=== PATIENT | female | born 1985 | race Caucasian/White ===

== ENCOUNTER 2023-05-07 07:51 | Outpatient (CLI) | payer OTHER, SELFPAY | END 2023-05-07 07:52 | disposition home or self-care (01) | LOC: NFLDREF 11:58 | PROVIDERS: PCP Obstetrics & Gynecology; Referring Provider Obstetrics & Gynecology; Visit Provider Obstetrics & Gynecology | DX: Z01.419 Encounter for gynecological examination (general) (routine) without abnormal findings (principal); Z13.6 Encounter for screening for cardiovascular disorders; Z13.29 Encounter for screening for other suspected endocrine disorder | CPT/HCPCS: 80061; 84443 ==

== ENCOUNTER 2023-07-31 15:27 | Outpatient (CLI) | payer OTHER, SELFPAY ==
--- NOTE | 2023-07-31 15:40 | CRLHL7_ITS ---
For Patients: As a result of the Cures Act, medical imaging exams and procedure reports are released immediately into your electronic medical record. You may view this report before your referring provider. If you have questions, please contact your health care provider. BILATERAL SCREENING MAMMOGRAM WITH COMPUTER-AIDED DETECTION AND TOMOSYNTHESIS TECHNIQUE: CC and MLO views were obtained. These mammographic images have been obtained using full-field digital technique. These mammographic images were interpreted with the benefit of computer-aided detection. Breast tomosynthesis was used in this interpretation. COMPARISON FILM: None. This is a baseline study. FINDINGS: The breasts are heterogeneously dense, which may obscure small masses. IMPRESSION: There is no radiographic evidence for malignancy. ASSESSMENT: BI-RADS Category 1: Negative RECOMMENDATION: Annual mammograms beginning at age 40. A lay language report of this examination will be provided to the patient. GUILLAUME VILLAVICENCIO M.D. Diagnostic/Nuclear Medicine Radiologist [email or web address] Transcribed: 1:[address]/Dictated by: Guillaume Villavicencio MD @ 08/01/2023 9:50:00 AM (Electronically Signed)
== END 2023-07-31 15:28 | disposition home or self-care (01) ==
LOC: MAMMO 15:28
PROVIDERS: Visit Provider Obstetrics & Gynecology
DX: Z12.31 Encounter for screening mammogram for malignant neoplasm of breast (principal); R92.2 Inconclusive mammogram; Z80.3 Family history of malignant neoplasm of breast
CPT/HCPCS: 77063; 77067

== ENCOUNTER 2024-10-06 12:09 | Outpatient (CLI) | payer BC, SELFPAY ==
--- NOTE | 2024-10-06 12:15 | CRLHL7_ITS ---
For Patients: As a result of the Cures Act, medical imaging exams and procedure reports are released immediately into your electronic medical record. You may view this report before your referring provider. If you have questions, please contact your health care provider. INDICATION: First trimester scan, establish dates. COMPARISON: None. TECHNIQUE: Real-time carney-scale imaging of the pelvis was performed. FINDINGS: Sonographic imaging demonstrates a single living intrauterine gestation. The embryo demonstrates a regular cardiac rate measuring 173 beats per minute. The embryo`s crown-rump length measurement of 2.0 cm corresponds to a gestational age of 8 weeks 4 days with a sonographic due date of 05/14/2025. There is a normal-appearing yolk sac. There are no gross abnormalities noted within the embryo at this early state of development. The gestational sac has a normal appearance. There is no evidence of a perigestational hemorrhage. The amount of fluid within the sac appears appropriate for gestational age. The cervix is closed. The myometrium appears normal. The ovaries are of normal size. There are no suspicious fluid collections noted in the cul-de-sac. IMPRESSION: Normal first trimester OB ultrasound exam. Gestational age calculated at 8 weeks 4 days with a sonographic due date of 05/14/2025. Dictated by Jose J Heller MD @ 10/06/2024 12:51:46 PM (Electronically Signed)
== END 2024-10-06 12:10 | disposition home or self-care (01) ==
LOC: US 12:09
PROVIDERS: Visit Provider Advanced Practice Midwife
DX: Z34.91 Encounter for supervision of normal pregnancy, unspecified, first trimester (principal); Z3A.08 8 weeks gestation of pregnancy
CPT/HCPCS: 76817

== ENCOUNTER 2024-10-21 16:10 | Outpatient (CLI) | payer BC, SELFPAY | END 2024-10-21 16:11 | disposition home or self-care (01) | LOC: NFLDREF 10-22 02:19 | PROVIDERS: Visit Provider Advanced Practice Midwife | DX: Z34.81 Encounter for supervision of other normal pregnancy, first trimester (principal); Z67.10 Type A blood, Rh positive | CPT/HCPCS: 83020; 83021; 85660; 86592; 86703; 86704; 86706; 86762; 86787; 86803; 86850; 86900; 86901; 87086; 87340 ==

== ENCOUNTER 2024-12-31 12:44 | Outpatient (CLI) | payer BC, SELFPAY | END 2024-12-31 12:45 | disposition home or self-care (01) | LOC: US 12:44 | PROVIDERS: Visit Provider Obstetrics & Gynecology | DX: O09.522 Supervision of elderly multigravida, second trimester (principal); Z3A.20 20 weeks gestation of pregnancy | CPT/HCPCS: 76811 ==

== ENCOUNTER 2025-02-24 13:12 | Outpatient (CLI) | payer BC, SELFPAY | END 2025-02-24 13:13 | disposition home or self-care (01) | LOC: NFLDREF 03-04 00:09 | PROVIDERS: Visit Provider Obstetrics & Gynecology | DX: Z34.93 Encounter for supervision of normal pregnancy, unspecified, third trimester (principal); Z3A.28 28 weeks gestation of pregnancy | CPT/HCPCS: 86592 ==

== ENCOUNTER 2025-02-25 07:49 | Outpatient (CLI) | payer BC, SELFPAY | END 2025-02-25 07:50 | disposition home or self-care (01) | LOC: NFLDREF 03-04 02:37 | PROVIDERS: Visit Provider Obstetrics & Gynecology | DX: Z34.83 Encounter for supervision of other normal pregnancy, third trimester (principal) | CPT/HCPCS: 82951; 82952 ==

== ENCOUNTER 2025-03-27 09:13 | Outpatient (CLI) | payer BC, SELFPAY ==
--- NOTE | 2025-03-27 09:15 | CRLHL7_ITS ---
For Patients: As a result of the Century Cures Act, medical imaging exams and procedure reports are released immediately into your electronic medical record. You may view this report before your referring provider. If you have questions, please contact your health care provider. LMP: 08/10/2024. LOUISA by LMP: 05/17/2025. GA: 32w, 5d. Single. INDICATION: Measuring large for dates. CERVIX: Not visualized. POSITIONING: Transverse right. AMNIOTIC FLUID: 6.2 cm SDP. PLACENTA: Technique: Transabdominal. PLACENTA POSITION: Posterior. DOPPLER: heart rate: 139 bpm. Biometry: BPD: 8.8 cm. 35w, 2d, 96.8 percent. HC: 32.6 cm. 37w, 0d, >97 percent. AC: 32.9 cm. 36w, 5d, >97 percent. FL: 6.3 cm. 32w, 4d, 32 percent. FL/AC ratio: 19.12 percent. HC/AC ratio: 0.99. EFW: 2709 g. Weight: 6 lbs, 0 oz. age by this US: 35w, 3d. LOUISA by this US: 04/28/2025. Percentile by LOUISA: >97 percent. IMPRESSION: 1. Sonographic gestational age 35 weeks 3 days and sonographic due date 04/28/2025. Sonographic age is 19 days ahead of the clinical age. 2. Estimated weight greater than 97th percentile. Abdominal circumference and head circumference greater than 97th percentile. Jose J Heller M.D. Diagnostic Radiologist [email or web address] bM/Dictated by: Jose J Heller MD @ 03/27/2025 11:25:00 AM (Electronically Signed)
== END 2025-03-27 09:14 | disposition home or self-care (01) ==
LOC: US 09:13
PROVIDERS: Visit Provider Obstetrics & Gynecology
DX: O36.63X0 Maternal care for excessive fetal growth, third trimester, not applicable or unspecified (principal); Z3A.32 32 weeks gestation of pregnancy
CPT/HCPCS: 76816

== ENCOUNTER 2025-04-16 09:14 | Outpatient (CLI) | payer BC, SELFPAY ==
[2025-04-16] VITALS (8 sets, daily range): BP systolic 97–103; BP diastolic 59–65; PULSE 76–105; RESP 16; TEMP 36.8; O2SAT 96–97
[2025-04-16 10:17] LABS: Amnisure Rom* Negative
--- NOTE | 2025-04-16 10:23 | CRLHL7_ITS ---
For Patients: As a result of the Century Cures Act, medical imaging exams and procedure reports are released immediately into your electronic medical record. You may view this report before your referring provider. If you have questions, please contact your health care provider. INDICATION: Leaking fluid. (Sic) COMPARISON: 03/27/2025 TECHNIQUE: Grayscale pelvic ultrasound via a transabdominal approach. FINDINGS: number: 1 Position: Cephalic. Placental Position: Posterior. Amniotic fluid: DVP 8.1cm. CHINA is 27.8 cm. heart rate: 146bpm. Uterus: No significant uterine findings. Right ovary: Unseen. Left ovary: Unseen. IMPRESSION: 1. Measurements of the deepest vertical pocket of amniotic fluid and CHINA are consistent with polyhydramnios. This represents a change from the 03/27/2025 exam where these deepest vertical pocket of amniotic fluid measures 6.2 cm, within normal limits. 2. Cantu living fetus. Dictated by Pb Maldonado MD @ 04/16/2025 11:40:38 AM (Electronically Signed)
[2025-04-16 11:06] LABS: Trichomonas No Trichomonas Seen (None Seen)
[2025-04-16 13:04] LABS: Amnisure Rom* Negative
--- NOTE | 2025-04-16 13:05 | W.PM.OBO ---
OB Outpatient HPI History of Present Illness Date Seen: 04/16/25 History of Present Illness: 40 year old at 35 4/7 weeks gestation by LMP, LOUISA 05/17/25, presents with concerns for watery like vaginal discharge this morning. Patient states that at around 1:30 am today she woke up to urinate, she was able to urinate as usual was walking back to bed and felt additional warm discharge. She returned to the bathroom and a stream of fluid was noted that she was unable to hold. She would describe this fluid as more clear in color. She decided to put a pantie liner and since it did not happen again decided to wait until morning and call in to check if she should be evaluated or not. Upon admission to labor and delivery patient denies continued discharge, no concerns about frequent contractions, no dysuria, no urgency or frequency. She has been a bit more constipated in these last couple of weeks. No diarrhea. She does state that this past weekend she was feeling off, she was trying to stay off the heat but was inside her house doing a lot of organizing and cleaning. Sunday afternoon had an episode of headache and seeing dark spots in her vision that resolved after rest and hydration. She also had a friend take her blood pressure that day and it was normal in the 120s, over 70s. No new lower extremity swelling, no pain in her abdomen etc... Baby moving naturally: Yes Bleeding: No Contractions: Yes Leaking fluid: Yes (Uncertain) Discharge: Yes (Uncertain) Heartburn: No Back pain: No Meds Home Medications and Allergies Home Medications ?Medication ?Instructions ?Recorded ?Confirmed ?Type omega-3 fatty acids 1,000 mg 1,000 mg PO QDAY 10/06/24 04/16/25 History capsule vits 75-iron 28 mg-folic pkg PO 10/06/24 04/10/25 History acid 800 mcg-omega3 440 mg oral pack (One Daily ) magnesium 200 mg tablet 400 mg PO QDAY 02/24/25 04/16/25 History Blood Glucose Meter #1 ea 03/27/25 04/10/25 Rx Test Strips #100 ea 03/27/25 04/10/25 Rx lancets #100 ea 03/27/25 04/10/25 Rx polyethylene glycol 3350 17 4 g PO QDAY PRN 04/10/25 04/16/25 History gram/dose oral powder (Miralax) Allergies Allergy/AdvReac Type Severity Reaction Status Date / Time No Known Drug Allergies Allergy Verified 04/10/25 08:28 [facility] Medical History (Updated 04/16/25 @ 13:19 by Racquel Nevarez MD) care ?Z34.90 - Encounter for supervision of normal , unspecified, unspecified trimester (ICD-10) care and examination ?Z39.2 - Encounter for routine follow-up (ICD-10) History of vaginal delivery History of macrosomia in infant in prior , currently ?O09.299 - Supervision of with other poor reproductive or obstetric history, unspecified trimester (ICD-10) Delivery normal ?O80 - Encounter for full-term uncomplicated delivery (ICD-10) Surgical History (Updated 04/27/23 @ 16:53 by Manoj Wilson) Status post surgery ?Z98.890 - Other specified postprocedural states (ICD-10) Family History (Updated 10/07/24 @ 12:40 by Anabell Ling CNM) Brother Factor V Leiden mutation Social History (Updated 10/07/24 @ 12:19 by Anabell Ling CNM) Narrative: SOCIAL Education: Masters Work: Teachers, Kindergarten Partner: Juan, Agriculture Finance Lives with: and 3 children Pets: 1 dog Abuse: Denies past/present Special Diet: Denies Ok with a blood transfusion: yes Culture or zoroastrianism beliefs: denies RISK FACTORS Exercise Times/wk: Pilates and walking 1-3 Hx of Depression and/or Anxiety/other mood disorder: no hx Seat Belt Use: Routinely Smoking: Denies past/present Alcohol/day: Denies while ; socially Caffeine: Coffee Drug Use: Denies past/present Chicken Pox: Yes as a child MRSA: Denies What is your current living situation?: I presently have a place to live Problems where you live: no known problems In the past 12 months, utilities in danger of being shut off: no In past 12 months, lack of transportation kept you from medical appts, meetings, work, or getting things needed for daily living: no In the past 12 mos, have been you worried that your food would run out before you had money to buy more?: never true In the past 12 mos, the food you bought just didn't last and you didn't have money to buy more?: never true Smoking Status: Never smoker How often does anyone, including family, friends and others, physically hurt you: never How often does anyone, including family, friends and others, insult or talk down to you: never How often does anyone, including family, friends and others, threaten you with harm: never How often does anyone, including family, friends and others, scream or curse at you: never History History 4 Elective abortions Para 3 Spontaneous abortions Hx # Term Pregnancies 3 Ectopic pregnancies Hx # Pregnancies Multiple births Number of Living Children 3 Past Pregnancies Del. Date GA/Weeks Outcome Route wt Inf Gender Labor Lgth Anesthesia Location Provider Compli 04/04/16 41 live - full term 4.479 kg Male epidural Enedelia Chao MD 08/18/18 40 live - full term 3.997 kg Female epidural Racquel Ji MD 06/03/21 39 live - full term 4.139 kg Female epidural Racquel Ji MD Delivery Date: 04/04/16 Last Updated by: Megan Muñoz ~ CAR SWEEPER, CAR SWEEPER induction of labor Delivery Date: 08/18/18 Last Updated by: Megan Muñoz ~ CAR SWEEPER, CAR SWEEPER induction of labor OB - H&P: Exam Physical Exam Vital signs: Temp Pulse Resp BP Pulse Ox 98.3 F 77 16 97/59 L 96 04/16/25 09:36 04/16/25 12:27 04/16/25 09:36 04/16/25 12:27 04/16/25 09:47 Narrative: NST: 135bpm/positive accelerations/negative decelerations/moderate variability/ irregular uterine contractions. Sterile speculum exam: no pooling, no Valsalva. Cervix: 1/80%/-2/vertex. US: Vertex! SDP: 8.1cm. CHINA: 27.8cm. Consistent with mild polyhydramnios. Labs Labs Laboratory Tests 04/16/25 04/16/25 04/16/25 Range/Units Unknown 12:43 10:22 Membrane Rupture Negative Negative Vaginal Trichomonas No Trichomonas Seen (None Seen) Vaginal Yeast No Yeast Seen (None Seen) Vaginal Clue Cells No Clue Cells Seen (None Seen) Group B Strep DNA Pending Assessment and Plan Assessment and plan (1) Vaginal discharge during : Status: Acute Plan 1. Vaginal discharge: negative AmniSure upon admission, wet prep negative. I also had her walk put a pad on and no new episodes of abnormal discharge. I repeated AmniSure after speculum exam and this was again negative. Ultrasound completed and amniotic fluid elevated which is a new finding, but not consistent with PPROM. So at this moment I feel confident enough to r/o PPROM. Encouraged to continue to monitor and be re evaluated with any new concerning episode. 2. Monitoring showing irregular contractions, patient does not feel them as painful. Cervix checked and not consistent with PTL. Encouraged to continue to monitor as well. GBS was collected today. 3. New finding consistent with mild polyhydramnios, reviewed how we make diagnosis, different categories and that most of the time this is considered idiopathic. We do not need to change our delivery timing or plan at the moment if mild poly remains stable. We will re check it with our scheduled growth US next week. 4. Baby had been malpresented but today was confirmed to be vertex!
--- NOTE | 2025-04-16 13:40 | PC.OBNST ---
NST Note NST Note Start: 04/16/25 09:26 Freq: ONCE Status: Active Protocol: Document 04/16/25 13:39 [facility] (Rec: 04/16/25 13:40 [facility] [id number]) NST Note 4 Para (# of births) 3 EDC 05/17/25 Gestational Age In 35 Weeks & 4 Days Weeks & Days Patient Presented Leaking fluid with Complaint(s) of Other Complaints 2 negative amnisure tests Reactive Yes Appropriate for Yes Gestational Age RN Yfn RN Date 04/16/25 Reactive Yes Appropriate for Yes Gestational Age JOSE ARMANDO Almodovar RN Date 04/16/25 OB NST charge Yes Complete NST Note Yes via Write Note The provider's electronic signature indicates the NST is reactive/appropriate for gestational age. *Note to provider: If an addendum is required, open the patient's chart and click on the note under the Nurse/Allied Health tab.
[2025-04-17 10:12] LABS: Strep B DNA Probe Negative (Negative)
[2025-04-17 11:14] LABS: Strep B Susceptibility Needed? No
== END 2025-04-16 13:30 | disposition home or self-care (01) ==
LOC: OB OUT 09:14 → OB 09:14
PROVIDERS: Visit Provider Obstetrics & Gynecology
DX: O47.03 False labor before 37 completed weeks of gestation, third trimester (principal); Z3A.35 35 weeks gestation of pregnancy
CPT/HCPCS: 59025; 76815; 84112; 87081; 87210; 87653; G0463

== ENCOUNTER 2025-04-22 15:30 | Outpatient (CLI) | payer BC, SELFPAY ==
[2025-04-22 15:43] VITALS: BP 115/76; PULSE 85; PULSE 86; O2SAT 95
[2025-04-22 16:09] LABS: Amnisure Rom* Negative
[2025-04-22 16:40] LABS: Appearance Urine Clear (Clear)
--- NOTE | 2025-04-22 17:05 | PC.OBNST ---
NST Note NST Note Start: 04/22/25 15:32 Freq: ONCE Status: Active Protocol: Document 04/22/25 17:04 [facility] (Rec: 04/22/25 17:05 CIARAN [id number]) NST Note 4 Para (# of births) 3 EDC 05/17/25 Gestational Age In 36 Weeks & 3 Days Weeks & Days Patient Presented Contractions/cramping,Leaking fluid with Complaint(s) of Reactive Yes Appropriate for Yes Gestational Age RN Yaya Sanders RN Date 04/22/25 Reactive Yes Appropriate for Yes Gestational Age JOSE ARMANDO Geller RN Date 04/22/25 OB NST charge Yes Complete NST Note Yes via Write Note The provider's electronic signature indicates the NST is reactive/appropriate for gestational age. *Note to provider: If an addendum is required, open the patient's chart and click on the note under the Nurse/Allied Health tab.
== END 2025-04-22 17:00 | disposition home or self-care (01) ==
LOC: OB OUT 15:31 → OB 15:31
PROVIDERS: Visit Provider Obstetrics & Gynecology
DX: O47.03 False labor before 37 completed weeks of gestation, third trimester (principal); Z3A.36 36 weeks gestation of pregnancy
CPT/HCPCS: 59025; 81001; 81003; 84112; 87086; G0463

== ENCOUNTER 2025-04-23 11:27 | Outpatient (CLI) | payer BC, SELFPAY ==
--- NOTE | 2025-04-23 11:30 | CRLHL7_ITS ---
For Patients: As a result of the Century Cures Act, medical imaging exams and procedure reports are released immediately into your electronic medical record. You may view this report before your referring provider. If you have questions, please contact your health care provider. OB ULTRASOUND LOUISA by LMP: 05/17/2025. GA: 36 w, 4 d. COMPARISON: 04/16/2025, 03/27/2025, 12/31/2024. INDICATION: Growth. TECHNIQUE: Real time carney scale imaging of the fetus was performed. Transabdominal imaging performed. CERVIX: Not visualized. POSITIONING: Vertex. AMNIOTIC FLUID: 35.3 cm CHINA. 12.5 cm SDP (N: greater than 2 x 1 cm). BIOPHYSICAL PROFILE: Gross body movements: 2. tone: 2. Respiratory activity: 2. Amniotic fluid: 2. SDP (N: greater than 2 x 1 cm) Total score: 8. PLACENTA: Technique: Transabdominal. PLACENTA POSITION: Posterior. DOPPLER: heart rate: 144 bpm. BIOMETRY: BPD: 9.5 cm. 38 w, 5 d, 97 percent. HC: 33.5 cm. 38 w, 2 d, 64 percent. AC: 33.3 cm. 37 w, 1 d, 79 percent. FL: 71 cm. 36 w, 2 d, 38 percent. FL/AC ratio: 21.23 percent. HC/AC ratio: 1.00. EFW: 3161 g. Weight: 7 lbs, 0 oz. age by this US: 37 w, 4 d. LOUISA by this US: 05/10/2025. Percentile by LOUISA: 73 percent. IMPRESSION: 1. Sonographic gestational age 37 weeks 4 days and sonographic due date 05/10/2025. Sonographic age 1 week ahead of the clinical age. 2. Estimated weight 73rd percentile. Abdominal circumference 79th percentile. 3. Normal biophysical profile 05/22. 4. Amniotic fluid single deepest pocket 12.5 cm. CHINA 35.3 cm. 5. Biparietal diameter 97th percentile. Jose J Heller M.D. Diagnostic Radiologist [email or web address] KIKI/Dictated by: Jose J Heller MD @ 04/23/2025 8:31:00 PM (Electronically Signed)
== END 2025-04-23 11:28 | disposition home or self-care (01) ==
LOC: US 11:28
PROVIDERS: Visit Provider Obstetrics & Gynecology
DX: O09.523 Supervision of elderly multigravida, third trimester (principal); O36.60X0 Maternal care for excessive fetal growth, unspecified trimester, not applicable or unspecified; Z3A.36 36 weeks gestation of pregnancy
CPT/HCPCS: 76816; 76819

== ENCOUNTER 2025-04-30 09:50 | Outpatient (CLI) | payer BC, SELFPAY ==
--- NOTE | 2025-04-30 10:00 | CRLHL7_ITS ---
For Patients: As a result of the Cures Act, medical imaging exams and procedure reports are released immediately into your electronic medical record. You may view this report before your referring provider. If you have questions, please contact your health care provider. OB ULTRASOUND BIOPHYSICAL PROFILE, 04/30/2025 CLINICAL HISTORY: Polyhydramnios. COMPARISON: None. TECHNIQUE: Real time carney scale imaging of the fetus was performed. Transabdominal imaging performed. FINDINGS: LMP: 08/10/2024. LOUISA by LMP: 05/17/2025. GA: 37 weeks 4 days. Cervix: Not visualized. Position: Vertex. Amniotic Fluid: 26.4 cm CHINA. 9.3 cm SDP. BIOPHYSICAL PROFILE: Gross Body Movements: 2 Tone: 2 Respiratory Activity: 2 Amniotic Fluid SDP: 2 Total Score: 8 Placenta: Technique: TA. Placenta Position: Posterior. Dopplers: Heart Rate: 155 bpm. IMPRESSION: 1. Normal biophysical profile score of 8/8. 2. Amniotic fluid single deepest pocket 9.3 cm. CHINA 26.4 cm. Jose J Heller M.D. Diagnostic Radiologist [email or web address] Transcribed: 12:38 pm DW/Dictated by: Jose J Heller MD @ 04/30/2025 11:21:00 AM (Electronically Signed)
== END 2025-04-30 09:51 | disposition home or self-care (01) ==
LOC: US 09:50
PROVIDERS: Visit Provider Obstetrics & Gynecology
DX: O40.3XX0 Polyhydramnios, third trimester, not applicable or unspecified (principal); Z3A.37 37 weeks gestation of pregnancy
CPT/HCPCS: 76819

== ENCOUNTER 2025-05-08 09:57 | Outpatient (CLI) | payer BC, SELFPAY ==
--- NOTE | 2025-05-08 10:00 | CRLHL7_ITS ---
For Patients: As a result of the Cures Act, medical imaging exams and procedure reports are released immediately into your electronic medical record. You may view this report before your referring provider. If you have questions, please contact your health care provider. OB ULTRASOUND BIOPHYSICAL PROFILE, 05/08/2025 CLINICAL HISTORY: Polyhydramnios. TECHNIQUE: Multiple transabdominal carney-scale, color and spectral Doppler images from a biophysical profile submitted. COMPARISON: 04/30/2025, 04/24/2025, 04/23/2025. FINDINGS: LOUISA by LMP: 05/17/2025. GA: 38 weeks 5 days. Gestation: Single. Cervix: Not visualized. Positioning: Vertex. Amniotic Fluid: 24.7 cm CHINA. 10.5 cm SDP. Biophysical Profile: Gross Body Movements: 2 Tone: 2 Respiratory activity: 2 Amniotic fluid SDP: 2 Total score: 8 Placenta: Technique: TA. Placenta position: Posterior, fundal. Dopplers: Heart Rate: 155 bpm. IMPRESSION: 1. Normal biophysical profile score of 8/8. 2. Polyhydramnios. 3. Bilateral renal pyelectasis measuring 4 and 5 mm. Drake Leon M.D. Body/Diagnostic Radiologist [email or web address] Transcribed: 4:56 pm DW/Dictated by: Drake Leon MD @ 05/12/2025 3:14:00 PM (Electronically Signed)
== END 2025-05-08 09:58 | disposition home or self-care (01) ==
LOC: US 09:57
PROVIDERS: Visit Provider Obstetrics & Gynecology
DX: O40.3XX0 Polyhydramnios, third trimester, not applicable or unspecified (principal); Z3A.38 38 weeks gestation of pregnancy
CPT/HCPCS: 76819

== ENCOUNTER 2025-05-12 06:12 | Inpatient (IN) | payer BC, SELFPAY ==
[2025-05-12] VITALS (47 sets, daily range): BP systolic 95–128; BP diastolic 55–79; PULSE 73–184; RESP 16–18; TEMP 36.5–37.3; O2SAT 81–100; BMI 28.5
--- NOTE | 2025-05-12 07:08 | P.LDBA_ITS ---
Subjective History of Present Illness Narrative: Patient is being admitted to Labor and Delivery for IOL in the setting of mild polyhydramnios. She is a 40 year old at 39 2/7 weeks gestation. Her full history and physical was dictated by Dr. FALK on 04/30/25. Please see this for details. Specific Issues/Plans Partner: Juan. Has a boy & 2 girls at home. Baby: boy! H&P by DEYA on 04/30/2025 #Polyhydramnios-mild Diagnosed on 04/16/25, CHINA:27cm-mild. FU 04/23/25: CHINA: 35.3cm, SDP:12.5cm-severe MFM referral 04/24/25: SDP 11.5cm, CHINA 26.6 = mild polyhydramnios. Recommended limited US in 2 weeks to reassess CHINA. If severe polyhydramnios identified again then refer back to [facility]. #Elevated 1hr GTT 3hrGTT ordered: one of 4 values elevated; no diabetes Due to 32 week US, will order GDM supplies to monitor BS at home for a couple of weeks... 34 week FU: Monitoring at home all normal, discontinue monitoring #AMA NIPT: low risk Level II US: See below #Heterozygous factor 5 No history of personal blood clots, family history of blood clots Recommended anticoagulation for 6 weeks Avoid estrogen-containing contraceptives #History of macrosomia/Suspected macrosomia 9 lb 14 oz and 9lb 2oz (1st and 3rd pregnancies) Growth US at 32 weeks-ordered 02/10/25-see below Repeat growth US after 36 weeks-ordered 04/10/25 #A1c 5.8 Nutrition referral placed. # Lower extremity varicose veins Imagin12/31/24: Level 2: Normal anatomy, posterior placenta, 3 vessel cord, SDP:5.6cm, cervix:4cm. EFW: 96%, AC:93%. Consider growth US in the third trimester due to history of macrosomia. 25: Transverse, BPD: 97%, HC: >97%, AC: >97%, FL: 32%. EFW: 2709g, >97%. SDP: 6.2cm. 04/23/25: Vertex, EFW:73%, BPD:>97%, HC: 64%, AC: 79%, FL: 38%. SDP: 12.5cm, CHINA:35.3cm. BPP 8/8 04/24/25 [facility] MFM: Vtx, SDP 11.5cm, CHINA 26.6cm. EFW: 3635g, 8#0oz, 96%. If severe polyhydramnios identified again then refer back to [facility]. 04/30/25: Vertex, SDP 9.3cm, CHINA 26.4cm, BPP 8/8. COVID: initial series, no boosters Flu: 10/06/2024 TDAP: 03/10/25 RSV: N/A OB - Problem Based A/P Additional Plan (1) Polyhydramnios: Status: Acute (2) History of macrosomia in in prior , currently : Status: Acute (3) Heterozygous factor V Leiden mutation: Status: Acute Plan 1. IOL to be started with IV Oxytocin and eventual AROM. 2. Patient plans to get epidural. 3. Continuous monitoring in the setting of mild polyhydramnios. 4. GBS negative, no need for antibiotic prophylaxis. 5. Heterozygous factor V mutation plan to complete prophylactic Lovenox for 6 weeks after delivery. OB Exam Detailed Labor and Delivery Exam Patient Gravid: yes Fetus (Single) Amniotic Membrane Status: intact Heart Rate Baseline: 140 Monitor Accelerations: Present Monitor Decelerations: Variable (Sporadic and non-deep) [facility] Variability: Moderate (6-25)
[2025-05-12 07:33] LABS: Hematocrit* 33.6 % (33.0-51.0); Hemoglobin* 11.4 gm/dL (12.0-16.0); Immature Granulocytes Abs Auto 0.04 K/uL (0.00-0.30); Immature Granulocytes Pct Auto 0.6 %; Mean Corpuscular HGB Conc 34 gm/dL (32-36); Mean Corpuscular Hemoglobin 31 pg (26-34); Mean Corpuscular Volume 92 fL (80-100); RDW Coefficient of Variation % 13.5 % (11.5-15.5); Red Blood Count* 3.65 m/uL (4.00-5.20); White Blood Count* 6.90 K/uL (4.50-11.00)
[2025-05-12 07:42] LABS: Lymphocytes Absolute Auto 3.30 K/uL (0.90-2.90); Slide Review Reflex Yes
[2025-05-12] MEDS: LACTATED RINGERS 1000 ML 1,000 ML 125 ML IV ×3 (07:42→18:54)
[2025-05-12] MEDS: OXYTOCIN 30 unit/500 ML in NS 30 UNIT/500 ML BAG IVPB (07:42)
[2025-05-12 08:28] LABS: Slide Review Acceptable Review (Acceptable)
--- NOTE | 2025-05-12 15:28 | PM.OBPNL ---
Subjective Time Seen by Provider: 14:30 Date Seen: 05/12/25 Narrative: Okay Objective Vital Signs: Last Vital Signs Temp 97.7 F 05/12/25 15:08 Pulse 90 05/12/25 14:22 Resp 16 05/12/25 14:22 BP 110/73 05/12/25 14:22 Pulse Ox 97 05/12/25 08:18 Pelvic Exam Dilation (cm): 4 Effacement (%): 75 Station: -1 Contractions Monitor mode: External Contraction pattern: Regular Contraction intensity: Moderate Pitocin Rate (mU/min): 18 Assessment Assessment: induction ongoing Station: -1 Amniotic Membrane Status: AROM Status: Category l Heart Rate Baseline: 130 Fdc Variability: Moderate (6-25) Monitor Accelerations: Present Monitor Decelerations: None (Sporadic and non-deep) Plan Plan: AROM, large amount of clear fluid. Tolerated well. Will plan to re check cervix in 3-4 hours. Epidural upon maternal request.
[2025-05-12] MEDS: ROPIVACAINE 0.2% 100 ml 100 ML 12 MG EPIDURAL (16:40)
[2025-05-12] MEDS: LIDOCAINE 2% (PF) 5 ML VIAL EPIDURAL (16:41)
--- NOTE | 2025-05-12 16:48 | PM.ANBPRC ---
[facility] Medical History (Updated 04/23/25 @ 12:38 by Racquel Nevarez MD) care ?Z34.90 - Encounter for supervision of normal , unspecified, unspecified trimester (ICD-10) care and examination ?Z39.2 - Encounter for routine follow-up (ICD-10) History of vaginal delivery History of macrosomia in infant in prior , currently ?O09.299 - Supervision of with other poor reproductive or obstetric history, unspecified trimester (ICD-10) Delivery normal ?O80 - Encounter for full-term uncomplicated delivery (ICD-10) Surgical History (Updated 04/27/23 @ 16:53 by Manoj Wilson) Status post surgery ?Z98.890 - Other specified postprocedural states (ICD-10) Family History (Updated 10/07/24 @ 12:40 by Anabell Ling CNM) Brother Factor V Leiden mutation Social History (Updated 10/07/24 @ 12:19 by Anabell Ling CNM) Narrative: SOCIAL Education: Masters Work: Teachers, Kindergarten Partner: [employer] Lives with: and 3 children Pets: 1 dog Abuse: Denies past/present Special Diet: Denies Ok with a blood transfusion: yes Culture or adventist beliefs: denies RISK FACTORS Exercise Times/wk: Pilates and walking 1-3 Hx of Depression and/or Anxiety/other mood disorder: no hx Seat Belt Use: Routinely Smoking: Denies past/present Alcohol/day: Denies while ; socially Caffeine: Coffee Drug Use: Denies past/present Chicken Pox: Yes as a child MRSA: Denies What is your current living situation?: I presently have a place to live Problems where you live: no known problems In the past 12 months, utilities in danger of being shut off: no In past 12 months, lack of transportation kept you from medical appts, meetings, work, or getting things needed for daily living: no In the past 12 mos, have been you worried that your food would run out before you had money to buy more?: never true In the past 12 mos, the food you bought just didn't last and you didn't have money to buy more?: never true Smoking Status: Never smoker How often does anyone, including family, friends and others, physically hurt you: never How often does anyone, including family, friends and others, insult or talk down to you: never How often does anyone, including family, friends and others, threaten you with harm: never How often does anyone, including family, friends and others, scream or curse at you: never Meds Home Medications and Allergies Home Medications ?Medication ?Instructions ?Recorded ?Confirmed ?Type omega-3 fatty acids 1,000 mg 1,000 mg PO QDAY 10/06/24 05/12/25 History capsule vits 75-iron 28 mg-folic pkg PO 10/06/24 05/08/25 History acid 800 mcg-omega3 440 mg oral pack (One Daily ) magnesium 200 mg tablet 400 mg PO QDAY 02/24/25 05/12/25 History polyethylene glycol 3350 17 4 g PO QDAY PRN 04/10/25 05/12/25 History gram/dose oral powder (Miralax) Allergies Allergy/AdvReac Type Severity Reaction Status Date / Time No Known Drug Allergies Allergy Verified 05/08/25 10:41 Results Labs Labs: Laboratory Results - last 24 hr 05/12/25 07:26 WBC 6.90 RBC 3.65 L Hgb 11.4 L Hct 33.6 MCV 92 MCH 31 MCHC 34 RDW Coeff of Marly 13.5 Plt Count 113 L Neut % (Auto) 45.5 Lymph % (Auto) 48.0 H [place] % (Auto) 5.1 Eos % (Auto) 0.4 Baso % (Auto) 0.4 Neut # (Auto) 3.14 Lymph # (Auto) 3.30 H [place] # (Auto) 0.40 Eos # (Auto) 0.03 Baso # (Auto) 0.03 Abs Immat Gran (auto) 0.04 Imm/Tot Granulo (auto) 0.6 Diff Slide Review Acceptable Review Blood Type A Positive Antibody Screen NEGATIVE Vital Signs Vital Signs: Last Vital Signs Temp 97.9 F 05/12/25 16:27 Pulse 76 05/12/25 16:47 Resp 16 05/12/25 16:27 BP 114/71 05/12/25 16:47 Pulse Ox 99 05/12/25 16:48 Weight: 82.5 kg Height: 170.18 cm Anesthesia Procedures Epidural Insertion Patient Location: OB Start Time: 16:20 Stop Time: 16:50 Start Date: 05/12/25 Stop Date: 05/12/25 Reason for Block: primary anesthetic Patient Position: sitting Performed By: Robles Romano Preanesthetic Checklist: IV checked, risks and benefits discussed, surgical consent, monitors and equipment checked, pre-op evaluation, timeout performed and anesthesia consent Prep: chlorhexidine gluconate Monitoring: blood pressure monitoring, solution analyst, continuous pulse oximetry and heart rate Approach: midline Vertebral Space: lumbar (1-5) Needle Type: Tuohy needle Injection Technique: continuous catheter (catheter) Needle gauge: 17 Needle Length (cm): 10 cm Needle Insertion Depth (cm): 5 Catheter Gauge: 19 Catheter Type: multi-orifice Catheter at skin depth (cm): 10 Test Dose Result: negative and lidocaine 1.5% with epinephrine 1 to 200,000
--- NOTE | 2025-05-12 19:21 | PM.OBPNL ---
Subjective Time Seen by Provider: 19:22 Date Seen: 05/12/25 Narrative: Okay Objective Vital Signs: Last Vital Signs Temp 98.1 F 05/12/25 18:20 Pulse 74 05/12/25 19:18 Resp 16 05/12/25 17:14 BP 100/62 05/12/25 19:18 Pulse Ox 100 05/12/25 17:13 Pelvic Exam Dilation (cm): 8.5 Effacement (%): 90 Station: 0 Contractions Monitor mode: External Contraction pattern: Regular Contraction intensity: Moderate Pitocin Rate (mU/min): 16 Assessment Assessment: induction ongoing Station: 0 Amniotic Membrane Status: AROM Status: Category ll Heart Rate Baseline: 140 Retirement Variability: Moderate (6-25) (Since about 6pm episodes of minimal variability and variable decelerations) Monitor Accelerations: Present Monitor Decelerations: Variable (Sporadic and non-deep) Plan Plan: Progressing well, NST category 2 at the moment, will continue with position changes, increase IVFs, will decrease Oxytocin if variable decelerations continue after these interventions, treat hypotension if needed. Expecting to start pushing soon.
--- NOTE | 2025-05-12 20:59 | W.PM.OBVAGDE ---
OB Procedure Vag Delivery Mother Details Mother Details: The patient is a 40 year-old, 4, Para 3, admitted on 05/12/25 at 39 2/7 Days gestation for IOL in the setting of mild polyhydramnios, suspected macrosomia. IOL started this am with IV Oxytocin and AROM, patient progressed normally and found complete-pushed effectively and had an uncomplicated vaginal delivery. : 4 Para: 4 Weeks Gestation: 39.2 Admission Date: 05/12/25 Additional Details Amniotic Membrane Status: AROM Amniotic Membrane Rupture Date: 05/12/25 Amniotic Membrane Rupture Time: 15:00 Amniotic Membrane Fluid Description: Clear Analgesia/Anesthesia Type: Epidural Waterbirth: No Pitcoin: Yes Intrapartal Events: Labor Induction Induction Method: per pitocin protocol and AROM Labor Onset: 17:45 Complete: 19:57 Pushin:03 Heart: heart tones during second stage were category 2, intermittent deep variables during active stage of labor and while pushing with good recovery after contractions. Delivery Details Delivery Date: 05/12/25 Delivery Time: 20:16 Route of delivery: Infant Gender: Male Viability: Alive; Heart Rate Present Position at Delivery: OA Delivery Details: Delivered via spontaneous vaginal delivery. Infant was placed on maternal abdomen.? Cord was clamped and cut after a 30-60 second delay. Nose and mouth were bulb suctioned.? Infant weight pending. 1 Minute Interval Total Score: 8 5 Minute Interval Total Score: 9 Additional Details Shoulder Dystocia: No Placenta Delivery Time: 20:45 Placental Delivery Description: Spontaneous Delivery repair: Vicryl Procedure Done: Global Blood Loss: 400 Laceration: Perineal - 1st Degree Episiotomy Description: None Blood Loss Measurement Type: QBL Bakri Used: No Sponge/Need Count Correct: Yes Cord Vessel Description: 3 Vessels, Nuchal Cord, Loose and Delivered through Event Summary Status: Mother and infant were stable after delivery. Disposition: floor
[2025-05-12] MEDS: ACETAMINOPHEN 500 MG TABLET 1000 MG PO (21:00)
[2025-05-13] VITALS (7 sets, daily range): BP systolic 106–117; BP diastolic 65–85; PULSE 71–93; RESP 16–18; TEMP 36.4–36.8; O2SAT 96–99
[2025-05-13] MEDS: IBUPROFEN 600 MG TABLET PO ×3 (00:03→19:42)
[2025-05-13] MEDS: ACETAMINOPHEN 500 MG TABLET 1000 MG PO ×3 (03:12→16:43)
[2025-05-13] MEDS: ENOXAPARIN 40 MG/0.4 ML INJ SUBCUT (06:12)
[2025-05-13 08:01] LABS: Hemoglobin* 11.4 gm/dL (12.0-16.0)
[2025-05-13] MEDS: DOCUSATE SODIUM 100 MG CAPSULE PO (09:27)
--- NOTE | 2025-05-13 09:55 | PM.ANPOST ---
Post Anesthesia Note Post Anesthesia Note Patient seen: Inpatient Respiratory Status: adequate Cardiovascular Status: adequate Mental Status: baseline Pain: adequate Temp: baseline Anesthetic awareness: N/A Complications: none Follow care: none
--- NOTE | 2025-05-13 11:50 | PM.OBPNVD1 ---
OB - PN:Subj Subjective Date Seen: 05/13/25 Narrative: Racheal is a 40 year old who was admitted for IOL in setting of polyhydramnios and suspected LGA and proceeded to have a vaginal with a 1st degree laceration that was repaired.The patient feels well.? The pain is well controlled with current medications.? She has no new complaints.? Urinary output is adequate and she is voiding without difficulty.? Has a good appetite, is tolerating a general diet, is passing flatus, and has not had a bowel movement.? Has scant/small/moderate amount of rubra lochia.? She is ambulating well. She is and reports it is going well.? OB - PN: Obj Exam Physical Exam: Vital signs: Temp Pulse Resp BP Pulse Ox O2 Del Method 98.1 F 87 16 109/72 96 Room Air 05/13/25 09:30 05/13/25 09:30 05/13/25 09:30 05/13/25 09:30 05/13/25 09:30 05/13/25 09:30 Narrative: GENERAL APPEARANCE:? normal affect, alert, no distress MOOD:? appropriate ABDOMEN:? soft, non-tender the uterine fundus is 1finger breadth below Umbilicus, Midline and is appropriate for the stage of recovery. PERINEUM:? deferred EXTREMITIES:? normal and minimal edema OB - PN: Obj Data Labs Labs: Laboratory Results - last 24 hr 05/13/25 07:35 Hgb 11.4 L OB - PN: A/P Delivery Assessment and Plan (1) care and examination of lactating mother: Status: Acute (2) Status post vaginal delivery: Status: Acute Plan Comments: PP day #1 Routine care May see as desired Anticipate discharge 05/14/2025
[2025-05-14] MEDS: ACETAMINOPHEN 500 MG TABLET 1000 MG PO ×2 (01:07→09:10)
[2025-05-14] MEDS: IBUPROFEN 600 MG TABLET PO (04:44)
[2025-05-14 04:46] VITALS: BP 111/72; PULSE 75; RESP 16; TEMP 36.8; O2SAT 96
[2025-05-14] MEDS: ENOXAPARIN 40 MG/0.4 ML INJ SUBCUT (06:06)
--- NOTE | 2025-05-14 07:55 | P.DS_ITS ---
DS: Providers Provider Date Seen: 05/14/25 Date of admission: 05/12/25 06:12 Primary care physician: Not a Local Provider Admitting Clinician: Merced Hernandez MD Attending Physician on discharge: Merced Hernandez MD Date of Discharge: 05/14/25 DS: Diagnosis Discharge Diagnosis (1) care and examination of lactating mother: Status: Acute (2) Status post vaginal delivery: Status: Acute (3) Advanced maternal age in multigravida: Status: Acute Exam Narrative: Exam Narrative: GENERAL APPEARANCE:? normal affect, alert, no distress? MOOD:? appropriate? CHEST:? clear to auscultation and percussion? HEART:? regular rate and rhythm? BREASTS: soft, nontender, no erythema, nipples intact? ABDOMEN:? soft, non-tender the uterine fundus is U/1 and is appropriate for the stage of recovery.? PERINEUM:? mild edema of the perineum, there is a 1st degree laceration that is healing well.? EXTREMITIES:? normal and no edema? Const: Vital Signs, click to edit/add: Vital Signs - 24 hr 05/13/25 09:30 05/13/25 13:48 05/13/25 16:45 Temperature 98.1 F 98.1 F 97.5 F L Pulse Rate [Pulse Oximeter] 87 83 93 Respiratory Rate 16 16 16 Blood Pressure [Le ft Arm] 109/72 110/65 117/80 Pulse Oximetry 96 96 98 Oxygen Delivery Me thod Room Air Room Air Room Air 05/13/25 20:45 05/14/25 04:46 Temperature 97.6 F 98.3 F Pulse Rate [Pulse Oximeter] 87 75 Respiratory Rate 16 16 Blood Pressure [Le ft Arm] 116/85 111/72 Pulse Oximetry 99 96 Oxygen Delivery Me thod Room Air Room Air Documenting provider has reviewed patient's vital signs: yes OB - DS: Summary Hospital Course Hospital Course: Racheal is a 40 y.o. G 4 P 4 who was admitted to [facility] for IOL for mild polyhydraminious. ?She had a NVD that was uncomplicated. The patient feels well. ?The pain is well controlled with current medications. ?She has no new complaints. ?She is breast feeding and reports things are going well. the patient has done well.? Vitals have been stable.? She has remained afebrile.? Has a good appetite, is tolerating a general diet. ?She is voiding without difficulty.? She is passing gas and has not had a bowel movement.? She is ambulating and denies any dizziness.? Has small amount of rubra lochia. She is planning progestin oral pill for prevention. Plan made p reviously to continue on IM Lovenox PP and prescription previously sent. Problems: none Peripartum Data delivery method: Vaginal Laceration description: Perineal - 1st Degree complications: none Leona Infant Gender: Male Infant Discharge Plan: Home Status at Discharge Functional status at discharge: independent ambulation Overall status at discharge: patient is progressing back to baseline Time Spent with Patient Time attestation: Total time spent providing and/or coordinating discharge services: Discharge Plan Discharge Disposition: Home, Self-Care Date of Admission: 05/12/25 06:12 Attending Provider on Discharge: Azucena Andrade Primary Care Provider: Provider,Not a Local Condition: Stable Anticipated Discharge Date/Time: 05/14/25 10:00 Discharge Medications: New acetaminophen 500 mg Tablet 1,000 mg PO Q6H PRN (Reason: pain/fever) Qty: 30 0RF ibuprofen 600 mg Tablet 600 mg PO Q6H PRNQty: 30 0RF enoxaparin 40 mg/0.4 mL Syringe 40 mg subcut Q24H Qty: 42 0RF docusate sodium 100 mg Capsule 100 mg PO DAILY Qty: 120 0RF Rx Instructions: Take 1-2 tablets daily as needed for constipation. Continued magnesium 200 mg tablet 400 mg PO QDAY One Daily 28-800-440 mg-mcg-mg combo pack PO omega-3 fatty acids 1,000 mg capsule 1,000 mg PO QDAY polyethylene glycol 3350 [Miralax] 17 gram/dose powder 4 g PO QDAY PRN Discharge Orders: Discharge Order (Routine); Ordered 05/14/25 Ordered By: Azucena Andrade Patient Education: OB Over the Counter Medication Information, OB Vaginal/Breast Feeding Additional Instructions: Discharge instructions were reviewed with the patient including signs and symptoms of infection and home going medications Nothing vaginally for 6 weeks: no tampons or intercourse Do not drive while taking narcotic pain medication(s) Off Work or School for 8 weeks Symptoms to report to doctor: * Bleeding that saturates more than one pad per hour * Passing clots larger than the size of a golf ball * Pain not relieved by prescribed medication * Fever above 100.4 degrees Fahrenheit * A foul vaginal odor * Difficulty in emotions, mood, and functions * Thoughts of hurting yourself and/or * Painful, reddened area in your breast * Any drainage, redness, or tenderness in your IV/epidural site * Severe headache that doesn't improve after taking medications * Changes in vision, including temporary loss of vision, blurred vision, and/or light sensitivity * Upper abdominal pain (usually under ribs on the right side) * Decrease in urination or painful, frequent urinating * Chest pain * Shortness of breath * Tenderness or pain with redness and/swelling in the calf(s) of your leg Optional 2-week visit: discuss feeding concerns, review control options and screen for anxiety/depression. 6-week visit for an annual exam. consultation services are available to all mothers and babies for the first year after delivery.? To make an appointment, please call [phone]. Activity Level: Activity as Tolerated Activity Detail: Nothing vaginally for 6 weeks Discharge Diet: Regular Follow Up Appointments: Provider,Not a Local [Primary Care Provider, Family Practice] Forms: Image Searcher Info Instructions
[2025-05-14] MEDS: DOCUSATE SODIUM 100 MG CAPSULE PO (09:10)
[2025-05-14 09:15] VITALS: BP 114/75; PULSE 97; RESP 16; TEMP 36.4; O2SAT 96
== END 2025-05-14 10:39 | disposition home or self-care (01) | DRG 560 ==
PROVIDERS: Obstetrics & Gynecology; Admitting Provider Obstetrics & Gynecology; Visit Provider Obstetrics & Gynecology
DX: O40.3XX0 Polyhydramnios, third trimester, not applicable or unspecified (principal); O36.63X0 Maternal care for excessive fetal growth, third trimester, not applicable or unspecified; O70.0 First degree perineal laceration during delivery; O99.12 Other diseases of the blood and blood-forming organs and certain disorders involving the immune mechanism complicating childbirth; D68.51 Activated protein C resistance; Z3A.39 39 weeks gestation of pregnancy; Z37.0 Single live birth
CPT/HCPCS: 01967; 36415; 85018; 85025; 86592; 86850; 86900; 86901; 88307; A9270; J1650; J2795; J7120